=== PATIENT | male | born 1940 | race African-American/Black ===

== ENCOUNTER 2024-02-20 12:25 | Emergency (ER) | payer MEDICARE, OTHER ==
[~2024-02-20] VITALS: Ht 203.2 cm; Wt 115.0 kg
[2024-02-20] MEDS ORDERED: LIPITOR (12:30)
[2024-02-20] MEDS ORDERED: AMLODIPINE (12:30)
[2024-02-20] MEDS ORDERED: ASPIRIN (12:30)
[2024-02-20 12:32] VITALS: O2SAT 98
[2024-02-20 14:11] LABS: HEMATOCRIT. 30.9 % (42.0-52.0); HEMOGLOBIN. 10.2 g/dL (14.0-18.0); MEAN CORPUSCULAR HEMOGLOBIN 29.2 pg (28.0-32.0); MEAN CORPUSCULAR HGB CONC 32.9 g/dL (31.0-37.0); MEAN CORPUSCULAR VOLUME 88.7 fL (80.0-94.0); MEAN PLATELET VOLUME 8.4 fl (7.4-10.4); PLATELET 436 x1000/uL (130-400); RED BLOOD CELL COUNT 3.48 mill/uL (4.7-6.1); RED CELL DISTRIBUTION WIDTH 18.5 % (11.6-14.6); WHITE BLOOD COUNT 8.5 x1000/uL (4.5-11.0)
[2024-02-20 14:12] LABS: CHLORIDE 107 mEq/L (98-107); POTASSIUM 3.4 mEq/L (3.5-5.1); SODIUM 143 mEq/L (136-145)
[2024-02-20 14:13] LABS: CARBON DIOXIDE 23 mEq/L (21-32)
[2024-02-20 14:14] LABS: CALCIUM 9.1 mg/dL (8.7-10.4)
[2024-02-20 14:17] LABS: DIFFERENTIAL COMMENT 1
[2024-02-20 14:18] LABS: CREATININE 1.6 mg/dL (0.6-1.3); GLUCOSE 87 mg/dL (70-105); UREA NITROGEN BLOOD 31 mg/dL (9-23)
[2024-02-20 14:21] LABS: TROPONIN I HIGH SENSITIVITY 4 ng/L (3.0-53)
[2024-02-20] MEDS: SODIUM CHLORIDE 0.9% 1,000 ML IV ONE (14:30)
[2024-02-20 14:58] LABS: ANISOCYTOSIS 1+; PLATELET ESTIMATE SLIGHTLY INCREASED
[2024-02-20 21:18] VITALS: BP 107/71; PULSE 68; RESP 16; TEMP 36.94740; O2SAT 99
== END 2024-02-20 21:42 | disposition short-term general hospital (02) ==
LOC: ER 12:25 → EDBEDREQ 18:39 → ER 21:42
DX: R42 Dizziness and giddiness (principal); N17.9 Acute kidney failure, unspecified; I95.1 Orthostatic hypotension; E11.9 Type 2 diabetes mellitus without complications; J44.9 Chronic obstructive pulmonary disease, unspecified; Z98.890 Other specified postprocedural states
CPT/HCPCS: 99285; 96361; 96360; 71045; 80048; 83880; 85025; 84484; 36415; 93005; J7030